=== PATIENT | male | born 1995 | race Caucasian/White ===

== ENCOUNTER 2021-02-23 08:42 | Emergency (ER) | payer OTHER ==
[2021-02-23 09:52] LABS: BASOPHIL 0.9 % (0-2); EOSINOPHIL 6.4 % (0-5); HCT 33.9 % (42.0-52.0); HGB 11.6 g/dl (13.2-18.0); MCH 29.4 pg (25.0-31.0); MCHC 34.2 g/dL (32.0-36.0); MCV 85.8 fL (78.0-100.0); MONOCYTE 9.7 % (0-12); MPV 9.9 fL (6.0-9.5); NEUTROPHIL 48.8 % (41-80); NRBC 0; PLT 297 K/uL (150-400); RBC 3.95 M/uL (4.70-6.00); RDW 13.4 % (11.5-14.0); WBC 5.8 K/uL (4.0-10.5)
[2021-02-23 10:01] LABS: ALBUMIN 3.9 g/dL (3.4-5.0); BILIRUBIN - TOTAL 0.5 mg/dL (0.2-1.0); BUN/CREAT RATIO (CALC) 12.5 RATIO; CREATININE 0.72 mg/dL (0.67-1.17); GLOBULIN (CALCULATION) 3.6 g/dL; POTASSIUM 3.1 mmol/L (3.5-5.1); TOTAL PROTEIN 7.5 g/dL (6.4-8.2)
[2021-02-23] MEDS ORDERED: NORCO 5-325 TA1 EACH PO (10:13)
== END 2021-02-23 10:29 | disposition home or self-care (01) ==
LOC: FER 08:42
PROVIDERS: Internal Medicine
DX: L02.212 Cutaneous abscess of back [any part, except buttock and flank] (principal); L72.3 Sebaceous cyst; F17.210 Nicotine dependence, cigarettes, uncomplicated; Z88.1 Allergy status to other antibiotic agents
CPT/HCPCS: 36415; 80053; 85025

== ENCOUNTER 2021-03-12 20:36 | Emergency (ER) | payer OTHER ==
[~2021-03-12 20:36] MED LIST: NORCO 5-325 TA1 EACH PO
[2021-03-12 21:26] LABS: BASOPHIL 0.3 % (0-2); EOSINOPHIL 1.6 % (0-5); HCT 37.2 % (42.0-52.0); LYMPHOCYTE 13.7 % (15-48); MCH 30.6 pg (25.0-31.0); MCHC 34.9 g/dL (32.0-36.0); MCV 87.5 fL (78.0-100.0); MONOCYTE 10.4 % (0-12); MPV 9.7 fL (6.0-9.5); NEUTROPHIL 73.8 % (41-80); NRBC 0; PLT 210 K/uL (150-400); RBC 4.25 M/uL (4.70-6.00); RDW 12.9 % (11.5-14.0); WBC 10.1 K/uL (4.0-10.5)
[2021-03-12 21:41] LABS: BUN/CREAT RATIO (CALC) 11.1 RATIO; CREATININE 0.72 mg/dL (0.67-1.17); POTASSIUM 3.8 mmol/L (3.5-5.1)
[2021-03-12] MEDS ORDERED: CIPRO500 MG PO (23:03)
[2021-03-12] MEDS ORDERED: METRONIDAZOLE500 MG PO (23:03)
== END 2021-03-13 01:05 | disposition home or self-care (01) ==
LOC: FER 20:36
PROVIDERS: Nurse Practitioner Family
DX: R19.7 Diarrhea, unspecified (principal); R10.13 Epigastric pain; Z88.1 Allergy status to other antibiotic agents
CPT/HCPCS: 36415; 80048; 82270; 85025; 87045; 87046; J7030